=== PATIENT | female | born 1995 | race Caucasian/White ===

== ENCOUNTER 2016-07-03 22:33 | Emergency (ER) | payer BC ==
[2016-07-03] MEDS ORDERED: ONDANSETRON 4 MG ODT TAB ONE (22:43)
[2016-07-03 23:59] LABS: ABSOLUTE NEUTROPHIL COUNT 7.1 K/mm3 (1.8-7.7); BASO % 0.3 % (0.2-1.0); EOS # 0.1 (0.0-0.5); EOS % 0.5 % (0.9-2.9); HEMATOCRIT 33.3 % (37.0-47.0); HEMOGLOBIN 11.3 gm/l (12.0-16.0); IMM NEUT% 0.3 % (0-1); LYMPH # 2.7 (1.0-4.8); LYMPH % 25.6 % (15-45); MEAN CELL VOLUME 92.8 fl (81.0-99.0); MEAN CORPUSCULAR HEMOGLOBIN 31.5 pg (27.0-31.0); MEAN CORPUSCULAR HGB CONC 33.9 g/dl (33.0-37.0); MEAN PLATELET VOLUME 11.1 fl (7.4-10.4); MONO # 0.6 (0.0-0.8); MONO % 5.7 % (4-12); NEUT % 67.6 % (43-75); PLATELET COUNT 204 K/mm3 (130-400); RED CELL DISTRIBUTION WIDTH 12.6 % (11.5-14.5)
[2016-07-04] MEDS ORDERED: SODIUM CHLORIDE 0.9% 1,000 ML ONE (00:01)
[2016-07-04] MEDS ORDERED: ONDANSETRON 4 MG/2ML 2 ML VIAL ONE (00:01)
[2016-07-04 00:13] LABS: ALB/GLOB RATIO 1.4 (>1.0); ALBUMIN 3.6 gm/dL (3.5-5.7); CALCIUM 8.8 mg/dL (8.6-10.3)
--- NOTE | 2016-07-04 07:58 | US ---
ABDOMINAL-LIMITED: 07/04/2016 12:59 AM CLINICAL HISTORY: Right upper quadrant pain with nausea.. STUDY: Limited right upper quadrant ultrasound COMPARISON: none FINDINGS: Gallbladder: Wall thickness: Normal Cholelithiasis: none Pericholecystic Fluid: none Sonographic Urbina's Sign: negative Bile ducts: Common bile duct measures 3 mm. Limited visualized Liver and RUQ structures: Incidental note is made of moderate right hydronephrosis. Correlation for urinary obstruction. heart tones of 153 bpm. evaluation is deferred at this time. IMPRESSION: No cholelithiasis or acute cholecystitis. Moderate right-sided hydronephrosis. Correlation for urinary obstruction symptoms would be recommended. Preliminary report was provided by [employer] at approximately 0311 hours on 07/04/2016.
== END 2016-07-04 04:00 | disposition home or self-care (01) ==
LOC: ED 22:33
DX: O26.892 Other specified pregnancy related conditions, second trimester (principal); R10.9 Unspecified abdominal pain; O21.0 Mild hyperemesis gravidarum; Z3A.26 26 weeks gestation of pregnancy